=== PATIENT | female | born 1970 | race Caucasian/White ===

== ENCOUNTER 2017-12-24 15:10 | Emergency (ER) | payer MEDICAID ==
[2017-12-24] MEDS: KETOROLAC 30 MG INJ IV (18:03)
[2017-12-24] MEDS: DIPHENHYDRAMINE 50 MG INJ IV (18:03)
[2017-12-24] MEDS: SOD CHLORIDE 0.9% 500 ML IV (18:03)
[2017-12-24] MEDS: METOCLOPRAMIDE 10 MG INJ IV (18:03)
[2017-12-24] MEDS: FAMOTIDINE 20 MG INJ IV (18:04)
== END 2017-12-24 20:57 | disposition home or self-care (01) ==
LOC: E/R 15:10
DX: R51 Headache (principal); I10 Essential (primary) hypertension
CPT/HCPCS: 96361; 96374; 96375; 99284-25